=== PATIENT | male | born 1985 | race Caucasian/White ===

== ENCOUNTER 2016-08-14 03:42 | Emergency (ER) | payer OTHER | END 2016-08-14 03:45 | disposition left against medical advice (07) | LOC: CED 03:42 | DX: Z53.21 Procedure and treatment not carried out due to patient leaving prior to being seen by health care provider (principal) ==

== ENCOUNTER 2016-08-15 07:05 | Emergency (ER) | payer OTHER ==
--- NOTE | ~2016-08-15 | CR72 ---
[facility] A Service of [facility] RADIOLOGY TEXT RESULTS PATIENT: ELVIA CODY LOCATION: [facility] : [birth year] UNIT #: [id number] AGE: [address]: Ronn Mercedes MD SEX: M ORDER DR: [id number] [facility] [address] [facility]. [place], [place] [address] [id number] E MR#: [id number] Acc #: [id number] NAME: ELVIA CODY : 1985 SEX: M STUDY DATE/TIME: 08/15/2016 7:22 UNIT: [facility] ROOM: STUDY DESCRIPTION: CR Chest Single View Portable Attending Physician: Ronn Mercedes M.D. Ordering Physician: Ronn Mercedes M.D. Primary Care Physician: Primary Care Physician No MEDICAL IMAGING REPORT This report is preliminary unless electronic signature is present EXAM Portable chest HISTORY Heroin overdose with shortness of breath. TECHNIQUE Single AP view of the chest was obtained. FINDINGS Bony structures are unremarkable. The heart and mediastinum have a normal configuration. There is consolidation seen around the right hilum. The patient is rotated slightly which may contribute to this but I am concerned about perihilar pneumonia or aspiration pneumonitis. Followup imaging is recommended. No definite infiltrates are seen on the left. Vascular markings are normal. IMPRESSION Suboptimal study with patient rotation. Lung markings are prominent around the right hilum raising the suspicion of pneumonia or aspiration pneumonitis in the right perihilar region. Recommend radiographic followup. Dictated by... Alo Caban M.D. THIS IS AN ELECTRONICALLY VERIFIED REPORT Alo Caban M.D. at 08/15/2016 10:45 AM JAG/isabel TD: 08/15/2016 09:03 JOB #: [id number] [facility] A Service of [facility] RADIOLOGY TEXT RESULTS PATIENT: ELVIA CODY LOCATION: [facility] : [birth year] UNIT #: [id number] AGE: [address]: Ronn Mercedes MD SEX: M ORDER DR: MEDICAL IMAGING REPORT Page 1 of 1 COPY
== END 2016-08-15 11:07 | disposition home or self-care (01) ==
LOC: CED 07:05
DX: T40.1X1A Poisoning by heroin, accidental (unintentional), initial encounter (principal); J18.9 Pneumonia, unspecified organism; H66.91 Otitis media, unspecified, right ear; F17.210 Nicotine dependence, cigarettes, uncomplicated
CPT/HCPCS: 71010; 99283; J2310

== ENCOUNTER → 2016-08-16 | Emergency (ER) | payer OTHER ==
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
--- NOTE | ~2016-08-16 | CR72 ---
[facility] A Service of [facility] RADIOLOGY TEXT RESULTS PATIENT: ELVIA CODY [facility] [id number] : [birth year] UNIT #: [id number] AGE: [address]: Idalia Lozano MD SEX: M ORDER DR: [id number] [facility] [address] [facility] [place], [place] [address] [id number] E MR#: [id number] Acc #: [id number] NAME: ELVIA CODY : 1985 SEX: M STUDY DATE/TIME: 08/16/2016 2:45 UNIT: [facility] ROOM: STUDY DESCRIPTION: CR Chest Single View Portable Attending Physician: Helder Dowell D.O. Ordering Physician: Helder Dowell D.O. Primary Care Physician: Primary Care Physician No MEDICAL IMAGING REPORT This report is preliminary unless electronic signature is present EXAM AP portable chest, 08/16/2016 HISTORY 31-year-old male in the ED with reported heroin overdose tonight. TECHNIQUE AP portable chest x-ray. FINDINGS The exam shows no definite active disease in the chest. Shallow lung expansion with crowding of vascular markings. No visible airspace consolidation or pleural effusion. Heart size within normal limits. IMPRESSION No active disease. Dictated by... Ant Toth M.D. THIS IS AN ELECTRONICALLY VERIFIED REPORT Ant Toth M.D. at 08/20/2016 5:00 PM Brando TD: 08/16/2016 08:12 JOB #: [id number] MEDICAL IMAGING REPORT Page 1 of 1 COPY
[2016-08-16 03:21] LABS: POC - CKMB 5.9 ng/mL (0.0-7.9); POC - TROPONIN <0.05 ng/mL (<=0.05)
[2016-08-16 03:28] LABS: AMPHETAMINE NEG (NEG); BARBITURATES NEG (NEG); BENZODIAZEPINES NEG (NEG); COCAINE NEG (NEG); MARIJUANA NEG (NEG); OPIATES POS (NEG); TRICYCLIC ANTIDEPRESSANTS NEG (NEG); U METHADONE NEG (NEG)
[2016-08-16 03:42] LABS: ALBUMIN SERUM 4.1 g/dL (3.5-5.0); ALKALINE PHOSPHATASE 41 U/L (32-92); ALT (SGPT) 36 U/L (10-40); AST (SGOT) 31 U/L (10-42); BILIRUBIN, DIRECT 0.3 mg/dL (0.0-0.2); BILIRUBIN,INDIRECT 1.2 mg/dL (0.0-0.9); BILIRUBIN,TOTAL 1.5 mg/dL (0.2-2.0); BLOOD UREA NITROGEN 12 mg/dL (9-23); BUN/CREATININE RATIO 13.33; CALCIUM SERUM 8.7 mg/dL (8.4-10.2); CARBON DIOXIDE 26 mmol/L (22-31); CHLORIDE 96 mmol/L (100-111); CREATININE SERUM 0.9 mg/dL (0.6-1.4); GLOM FILT RATE Estimated 112.6 mL/min (>60); GLUCOSE FASTING 142 mg/dL (70-110); PROTEIN TOTAL SERUM 7.7 g/dL (6.0-8.3); SALICYLATE <4.0 mg/dL; SODIUM 133 mmol/L (135-145)
[2016-08-16 03:43] LABS: ACETAMINOPHEN <10 ug/mL; POTASSIUM 2.6 mmol/L (3.5-5.1)
== END | disposition home or self-care (01) ==
LOC: CED 02:43
PROVIDERS: Emergency Medicine
DX: T40.1X1A Poisoning by heroin, accidental (unintentional), initial encounter (principal)
CPT/HCPCS: 36415; 71010; 80048; 80076; 80307; 82553; 83735; 84132; 84484; 94640; 96361; 96374; 99285; G0378; G0480; J3475

== ENCOUNTER 2016-10-07 15:23 | Emergency (ER) | payer OTHER | END 2016-10-07 16:20 | disposition home or self-care (01) | LOC: CED 15:23 → CFTX 15:23 | DX: L03.211 Cellulitis of face (principal); F17.210 Nicotine dependence, cigarettes, uncomplicated | CPT/HCPCS: 96372; 99283 ==

== ENCOUNTER 2016-12-08 18:50 | Emergency (ER) | payer OTHER ==
[~2016-12-08] VITALS: Ht 185.4 cm; Wt 86.2 kg
--- NOTE | ~2016-12-08 | CR126 ---
[facility] A Service [facility] RADIOLOGY TEXT RESULTS PATIENT: ELVIA CODY LOCATION: [facility] : [birth year] UNIT #: [id number] AGE: [address]: Nuria Cruz APRN SEX: M ORDER DR: [id number] [id number] [place], [place] [address] [id number] E MR#: [id number] Acc #: [id number] NAME: ELVIA CODY : 1985 SEX: M STUDY DATE/TIME: 12/08/2016 22:47 UNIT: [facility] ROOM: STUDY DESCRIPTION: CR Foot Complete Min 3 View Lt Attending Physician: Nuria Cruz A.P.R.N. Ordering Physician: Nuria Cruz A.P.R.N. Primary Care Physician: Primary Care Physician No MEDICAL IMAGING REPORT This report is preliminary unless electronic signature is present EXAM Left foot series INDICATION Left foot pain and redness, with edema between the fourth and fifth digits today. No known injury. PROCEDURE Three views left foot. COMPARISON None. FINDINGS Soft tissue swelling along the dorsum of the foot particularly the metatarsal regions. There is no acute bone injury, radiodense foreign body or soft tissue gas. IMPRESSION Soft tissue swelling along the metatarsal regions but no acute bone injury. Dictated by... Hesham Santacruz M.D. THIS IS AN ELECTRONICALLY VERIFIED REPORT Hesham Santacruz M.D. at 12/09/2016 10:03 PM BRANDON/morgan TD: 12/09/2016 09:25 JOB #: [id number] MEDICAL IMAGING REPORT [facility] A Service [facility] RADIOLOGY TEXT RESULTS PATIENT: ELVIA CODY LOCATION: [facility] : [birth year] UNIT #: [id number] AGE: [address]: Nuria Cruz APRN SEX: M ORDER DR: Page 1 of 1 COPY
[2016-12-08 23:05] LABS: BASOPHIL# 0.1 X10e3 (0-0.3); BASOPHIL% 0.9 % (0-2.5); EOSINOPHIL# 0.1 X10e3 (0-0.7); EOSINOPHIL% 0.9 % (0.0-7.0); HEMATOCRIT 42.9 % (38.0-50.0); HEMOGLOBIN 14.4 gm/dL (13.0-16.0); LYMPHOCYTE# 2.4 X10e3 (1.0-3.5); LYMPHOCYTE% 32.7 % (17.0-45.0); MEAN CELL VOLUME 85.3 FL (83-96); MEAN CORPUSCULAR HEMOGLOBIN 28.7 PG (28-34); MEAN CORPUSCULAR HGB CONC 33.6 g/dL (30-36); MONOCYTE# 0.6 X10e3 (0-1.0); MONOCYTE% 8.6 % (3.0-12.0); NEUTROPHIL# 4.1 X10e3 (1.5-7.1); NEUTROPHIL% 56.9 % (40-75); PLATELET COUNT 261 X10e3 (140-420); RED BLOOD COUNT 5.03 X10e (3.90-5.60); RED CELL DISTRIBUTION WIDTH 13.1 % (11.0-15.5); WHITE BLOOD COUNT 7.3 X10e3 (4.0-10.5)
[2016-12-08 23:09] LABS: DIFF IND NO
[2016-12-08 23:12] LABS: PARTIAL THROMBOPLASTIN TIME 26.1 SECONDS (23.5-31.3); PROTHROMBIN TIME (PATIENT) 11.2 SECONDS (10.0-11.7)
[2016-12-08 23:21] LABS: ALBUMIN SERUM 4.1 g/dL (3.5-5.0); BILIRUBIN, DIRECT 0.1 mg/dL (0.0-0.2); BILIRUBIN,INDIRECT 0.6 mg/dL (0.0-0.9); BILIRUBIN,TOTAL 0.7 mg/dL (0.2-2.0); BUN/CREATININE RATIO 8.88; CALCIUM SERUM 9.6 mg/dL (8.4-10.2); CREATININE SERUM 0.9 mg/dL (0.6-1.4); GLOM FILT RATE Estimated 112.6 mL/min (>60); POTASSIUM 3.5 mmol/L (3.5-5.1)
== END 2016-12-09 00:45 | disposition home or self-care (01) ==
LOC: CFTX 18:50 → CED 18:50 → CFTX 22:17
PROVIDERS: Nurse Practitioner
DX: L02.612 Cutaneous abscess of left foot (principal); F17.210 Nicotine dependence, cigarettes, uncomplicated
CPT/HCPCS: 10060; 36415; 73630; 80048; 80076; 85025; 85610; 85730; 87040; 90715; 96372; 99283

== ENCOUNTER 2017-01-12 14:46 | Emergency (ER) | payer OTHER ==
[~2017-01-12] VITALS: Ht 185.4 cm; Wt 83.9 kg
== END 2017-01-12 15:59 | disposition left against medical advice (07) ==
LOC: CED 14:46
DX: T40.1X1A Poisoning by heroin, accidental (unintentional), initial encounter (principal); F17.210 Nicotine dependence, cigarettes, uncomplicated
CPT/HCPCS: 99284